=== PATIENT | male | born 1965 | race American Indian/Alaskan Native ===

== ENCOUNTER → 2018-08-18 | Outpatient (CLI) | payer OTHER ==
--- NOTE | 2018-08-18 15:31 | MR ---
MR left wrist HISTORY: Left wrist pain Multiplanar multisequence imaging through the left wrist No plain film available for comparison. Bone marrow signal is remarkable for some mild increased signal at the proximal aspect of the hamate, type II lunate is noted with articulation at the proximal hamate. Prior fibrocartilage shows some in creased signal centrally which could represent a small perforation. The scapholunate, lunotriquetral ligaments are intact but shows some probable degenerative signal. Extensor carpi ulnaris tendon sheat h shows some irregularity, there is some fluid signal, tendinitis mildly thickened with some internal signal suggesting tendinosis, possible sprain of the sheath, tenosynovitis. The abductor pollicis lo ngus tendon shows probable multiple individual slips of tendon rather than longitudinal tear, some mi nimal fluid signal present at this level. Flexor and extensor tendons are intact. Soft tissue edema c hange is present about the extensor tendons, some fluid signal present along multiple extensor tendon s suggest tenosynovitis. No evident fracture or dislocation. IMPRESSION: Findings along the extensor carpi ulnar tendon compatible with tenosynovitis with sprain of the tendon sheath. Abnormal triangular fibrocartilage as described. Type II lunate with additional articular facet. Additional findings above.
== END | disposition home or self-care (01) ==
LOC: RADMRIMAIN 06:13
PROVIDERS: ATTEND Orthopaedic Surgery
DX: M77.8 Other enthesopathies, not elsewhere classified (principal)

== ENCOUNTER 2020-09-27 07:29 | Observation (INO) | payer BC ==
[2020-09-27] MEDS ORDERED: SODIUM CHLORIDE 0.9% 1,000 ML IV STA (07:49)
[2020-09-27] MEDS ORDERED: ACETAMINOPHEN TAB 325 MG TAB PO STA (07:56)
[2020-09-27 08:05] LABS: Basophils # (A) 0.1 k/uL (0-0.2); Basophils % (A) 1 %; Eosinophils # (A) 0.1 k/uL (0-0.7); Eosinophils % (A) 1 %; HCT 42.5 % (39.0-53.0); HGB 14.7 gm/dL (13.0-17.5); Lymphocytes # (A) 1.7 k/uL (1.0-4.8); Lymphocytes % (A) 32 %; MCH 30.3 pg (25.0-35.0); MCHC 34.6 g/dL (31.0-37.0); MCV 87.4 fL (80.0-100.0); Mean Platelet Volume 6.8; Monocytes # (A) 0.3 k/uL (0-1.0); Monocytes % (A) 6 %; Neutrophils # (A) 3.1 k/uL (1.3-7.7); Neutrophils % (A) 59 %; Platelet Count 216 k/uL (150-450); RBC 4.86 m/uL (4.30-5.90); RDW 12.4 % (11.5-15.5); WBC 5.2 k/uL (3.8-10.6)
--- NOTE | 2020-09-27 08:13 | ED ---
General Adult HPI - General Chief complaint: Dizziness Stated complaint: Dizziness Source: EMS Mode of arrival: EMS Limitations: no limitations - History of Present Illness Initial comments: Patient is a 54-year-old male with past medical history of hypertension presents emergency department after he had a presyncopal episode. Patient reports that he was laying in bed when he had the sensation that he had to throw up. Patient attempted to walk to the bathroom however felt extremely lightheaded and kneeled to the ground. States he did not fall or hit his head. He began dry heaving. heard a "thump" from the bathroom and came out to see that he was on the ground. He was able to arouse. Patient denies losing consciousness. EMS was called and found the patient to be hypotensive. Vital signs did improve upon laying down. IV was established and the patient was given approximately 200 mL of saline. He denies any recent illnesses. Does report to poor oral intake due to a recent sinus headache. States he's had a frontal headache for the past several days. Denies vision changes or photophobia. No unilateral numbness or weakness. States he took Sudafed however this was 4 days ago. Denies any new medications. Does take high blood pressure medication however denies any recent changes in his dosing. He denies any chest pain or shortness of breath. No abdominal pain. Does admit to diarrhea. No black or bloody stools. No other alleviating, precipitating or modifying factors - Related Data Home Medications Medication Instructions Recorded Confirmed Bisoprolol-Hctz 2.5-6.25 mg [Ziac 1 tab PO DAILY 09/27/20 09/27/20 2.5-6.25 MG] Allergies Allergy/AdvReac Type Severity Reaction Status Date / Time No Known Allergies Allergy Verified 09/27/20 11:15 Review of Systems ROS Statement: Those systems with pertinent positive or pertinent negative responses have been documented in the HPI. ROS Other: All systems not noted in ROS Statement are negative. Past Medical History Past Medical History: Hypertension History of Any Multi-Drug Resistant Organisms: None Reported Past Surgical History: No Surgical Hx Reported Past Psychological History: No Psychological Hx Reported Smoking Status: Never smoker Past Alcohol Use History: None Reported Past Drug Use History: None Reported General Exam Limitations: no limitations Course Vital Signs 09/27/20 09/27/20 09/27/20 07:30 08:02 08:41 Temperature 98.5 F Pulse Rate 86 72 Pulse Rate [ 92 Sitting] Pulse Rate [ 91 Standing] Pulse Rate [ 87 Supine] Respiratory 16 16 16 Rate Blood Pressure 108/76 112/82 Blood Pressure 103/69 [Sitting] Blood Pressure 83/54 [Standing] Blood Pressure 107/75 [Supine] O2 Sat by Pulse 99 100 99 Oximetry 09/27/20 09/27/20 09/27/20 09:21 09:54 10:31 Temperature Pulse Rate 89 75 Pulse Rate [ 78 Sitting] Pulse Rate [ 82 Standing] Pulse Rate [ 76 Supine] Respiratory 16 16 16 Rate Blood Pressure 91/62 91/26 Blood Pressure 98/69 [Sitting] Blood Pressure 90/62 [Standing] Blood Pressure 92/68 [Supine] O2 Sat by Pulse 100 99 Oximetry 09/27/20 09/27/20 09/27/20 11:15 11:55 13:00 Temperature Pulse Rate 89 77 76 Pulse Rate [ Sitting] Pulse Rate [ Standing] Pulse Rate [ Supine] Respiratory 18 16 16 Rate Blood Pressure 102/71 103/76 110/80 Blood Pressure [Sitting] Blood Pressure [Standing] Blood Pressure [Supine] O2 Sat by Pulse 98 98 98 Oximetry 09/27/20 13:26 Temperature 98.0 F Pulse Rate Pulse Rate [ Sitting] Pulse Rate [ Standing] Pulse Rate [ Supine] Respiratory Rate Blood Pressure Blood Pressure [Sitting] Blood Pressure [Standing] Blood Pressure [Supine] O2 Sat by Pulse Oximetry EKG Findings - EKG Comments: EKG Findings:: EKG demonstrates normal sinus rhythm with a ventricular rate of 82. TN interval 166. QRS 84. QTC of 397. Medical Decision Making - Medical Decision Making Arrival patient is placed into room 1. A thorough history and physical exam was performed. Orthostatics are performed and are grossly positive. Patient has a blood pressure of 107/75 upon lying down. When standing the patient's blood pressure drops to 83/54.IV is established. Patient given a liter bolus of normal saline. Laboratory studies were conducted. Patient went for a CT of his brain as he is reporting to a headache causing him to have poor oral intake. Laboratory studies are reviewed. Chest and CT of the brain demonstrated no acute processes. I did repeat the patient's blood pressures and they remain stable however all 3 measurements remain hypotensive. Patient is given a second liter bolus of normal saline with continued low blood pressure readings. Because of this I did recommend admission. Spoke with Anthony Reed who agreed to admit the patient. echo was ordered. Patient will be continued on fluid hydration. Patient remained in stable condition awaiting a bed - Lab Data Result diagrams: 09/27/20 07:52 09/27/20 07:52 Lab Results 09/27/20 09/27/20 09/27/20 Range/Units 07:52 07:52 07:52 WBC 5.2 (3.8-10.6) k/uL RBC 4.86 (4.30-5.90) m/uL Hgb 14.7 (13.0-17.5) gm/dL Hct 42.5 (39.0-53.0) % MCV 87.4 (80.0-100.0) fL MCH 30.3 (25.0-35.0) pg MCHC 34.6 (31.0-37.0) g/dL RDW 12.4 (11.5-15.5) % Plt Count 216 (150-450) k/uL MPV 6.8 Neutrophils % 59 % Lymphocytes % 32 % Monocytes % 6 % Eosinophils % 1 % Basophils % 1 % Neutrophils # 3.1 (1.3-7.7) k/uL Lymphocytes # 1.7 (1.0-4.8) k/uL Monocytes # 0.3 (0-1.0) k/uL Eosinophils # 0.1 (0-0.7) k/uL Basophils # 0.1 (0-0.2) k/uL Sodium 132 L (137-145) mmol/L Potassium 4.5 (3.5-5.1) mmol/L Chloride 101 (98-107) mmol/L Carbon Dioxide 24 (22-30) mmol/L Anion Gap 7 mmol/L BUN 14 (9-20) mg/dL Creatinine 1.07 (0.66-1.25) mg/dL Est GFR (CKD-EPI)AfAm >90 (>60 ml/min/1.73 sqM) Est GFR (CKD-EPI)NonAf 80 (>60 ml/min/1.73 sqM) Glucose 138 H (74-99) mg/dL Plasma Lactic Acid Kishore (0.7-2.0) mmol/L Calcium 8.5 (8.4-10.2) mg/dL Total Bilirubin 0.7 (0.2-1.3) mg/dL AST 24 (17-59) U/L ALT 16 (4-49) U/L Alkaline Phosphatase 36 L (38-126) U/L Troponin I <0.012 (0.000-0.034) ng/mL Total Protein 7.1 (6.3-8.2) g/dL Albumin 3.9 (3.5-5.0) g/dL Urine Color Urine Appearance (Clear) Urine pH (5.0-8.0) Ur Specific [place] (1.001-1.035) Urine Protein (Negative) Urine Glucose (UA) (Negative) Urine Ketones (Negative) Urine Blood (Negative) Urine Nitrite (Negative) Urine Bilirubin (Negative) Urine Urobilinogen (<2.0) mg/dL Ur Leukocyte Esterase (Negative) 09/27/20 09/27/20 Range/Units 07:52 07:52 WBC (3.8-10.6) k/uL RBC (4.30-5.90) m/uL Hgb (13.0-17.5) gm/dL Hct (39.0-53.0) % MCV (80.0-100.0) fL MCH (25.0-35.0) pg MCHC (31.0-37.0) g/dL RDW (11.5-15.5) % Plt Count (150-450) k/uL MPV Neutrophils % % Lymphocytes % % Monocytes % % Eosinophils % % Basophils % % Neutrophils # (1.3-7.7) k/uL Lymphocytes # (1.0-4.8) k/uL Monocytes # (0-1.0) k/uL Eosinophils # (0-0.7) k/uL Basophils # (0-0.2) k/uL Sodium (137-145) mmol/L Potassium (3.5-5.1) mmol/L Chloride (98-107) mmol/L Carbon Dioxide (22-30) mmol/L Anion Gap mmol/L BUN (9-20) mg/dL Creatinine (0.66-1.25) mg/dL Est GFR (CKD-EPI)AfAm (>60 ml/min/1.73 sqM) Est GFR (CKD-EPI)NonAf (>60 ml/min/1.73 sqM) Glucose (74-99) mg/dL Plasma Lactic Acid Kishore 1.6 (0.7-2.0) mmol/L Calcium (8.4-10.2) mg/dL Total Bilirubin (0.2-1.3) mg/dL AST (17-59) U/L ALT (4-49) U/L Alkaline Phosphatase (38-126) U/L Troponin I (0.000-0.034) ng/mL Total Protein (6.3-8.2) g/dL Albumin (3.5-5.0) g/dL Urine Color Light Yellow Urine Appearance Clear (Clear) Urine pH 7.0 (5.0-8.0) Ur Specific [place] 1.008 (1.001-1.035) Urine Protein Negative (Negative) Urine Glucose (UA) Negative (Negative) Urine Ketones Negative (Negative) Urine Blood Negative (Negative) Urine Nitrite Negative (Negative) Urine Bilirubin Negative (Negative) Urine Urobilinogen <2.0 (<2.0) mg/dL Ur Leukocyte Esterase Negative (Negative) Disposition Clinical Impression: Hypotension, Pre-syncope Disposition: ADMITTED IP TO THIS [facility] Condition: Stable Is patient prescribed a controlled substance at d/c from ED?: No Decision to Admit Reason: Admit from EC Decision Date: 09/27/20 Decision Time: 11:06
[2020-09-27 08:21] LABS: ALT 16 U/L (4-49); AST 24 U/L (17-59); African American GFR (CKD) >90 (>60 ml/min/1.73 sqM); Albumin 3.9 g/dL (3.5-5.0); Alkaline Phosphatase 36 U/L (38-126); Anion Gap 7 mmol/L; Blood Urea Nitrogen 14 mg/dL (9-20); Calcium 8.5 mg/dL (8.4-10.2); Carbon Dioxide 24 mmol/L (22-30); Chloride 101 mmol/L (98-107); Glucose 138 mg/dL (74-99); Non-African American GFR(CKD) 80 (>60 ml/min/1.73 sqM); Potassium 4.5 mmol/L (3.5-5.1); Sodium 132 mmol/L (137-145); Total Bilirubin 0.7 mg/dL (0.2-1.3); Total Protein 7.1 g/dL (6.3-8.2)
--- NOTE | 2020-09-27 08:32 | XR ---
EXAMINATION TYPE: XR chest 2V DATE OF EXAM: 09/27/2020 COMPARISON: Chest x-ray May 29, 2020 HISTORY: Hypointense and presyncope. TECHNIQUE: Frontal and lateral views of the chest are obtained. FINDINGS: There is chronic parenchymal change with increased markings medial right lower lung redemo nstrated. No new focal airspace opacity, pleural effusion, or pneumothorax seen bilaterally. The card iac silhouette size remains within normal limits. Mild to moderate multilevel disc space narrowing in the lower thoracic spine is redemonstrated.. Overlying EKG leads redemonstrated. IMPRESSION: No new suspicious acute pulmonary process. No significant change from prior.
--- NOTE | 2020-09-27 08:41 | CT ---
EXAMINATION TYPE: CT brain wo con DATE OF EXAM: 09/27/2020 COMPARISON: None HISTORY: Headache, poor oral intake, presyncope CT DLP: 1149.[address] of the brain was performed. The ventricles, basal cisterns and sulci overlying the cerebral convexities demonstrate mild enlargem ent. There is no evidence for intracranial hemorrhage or sulcal effacement. There is decreased attenuation about the periventricular white matter and deep white matter of both c erebral hemispheres, compatible with chronic small vessel ischemia. Differential diagnosis does inclu de demyelination. No mass effects are seen.No midline shift. Osseous calvarium is intact. If symptoms persist consider MRI. IMPRESSION: 1. Age related atrophic and chronic small vessel ischemic change without acute intracranial process s een at this time.
[2020-09-27] MEDS ORDERED: SODIUM CHLORIDE 0.9% 1,000 ML IV ONE ×2 (09:32→11:08)
[2020-09-27] MEDS ORDERED: NALOXONE 0.4 MG/ML 1 ML VIAL IV PRN (11:10)
[2020-09-27] MEDS ORDERED: SODIUM CHLORIDE 0.9% 1,000 ML IV SCH (11:15)
[2020-09-27] MEDS ORDERED: ACETAMINOPHEN TAB 325 MG TAB PO PRN (11:36)
[2020-09-27 12:25] LABS: Appearance,Urine Clear (Clear); Bilirubin,Urine Negative (Negative); Blood,Urine Negative (Negative); Color,Urine Light Yellow; Glucose,Urine (UA) Negative (Negative); Ketones,Urine Negative (Negative); Leukocyte Esterase,Urine Negative (Negative); Nitrite,Urine Negative (Negative); Protein,Urine Negative (Negative); Specific Gravity,Urine 1.008 (1.001-1.035); Urobilinogen,Urine <2.0 mg/dL (<2.0)
[2020-09-27] MEDS ORDERED: ALBUTEROL HFA INHALER INHALATION PRN (16:47)
[2020-09-27 17:39] LABS: D-Dimer 0.52 mg/L FEU (<0.60); INR 0.9 (<1.2); Partial Thromboplastin Time 25.1 sec (22.0-30.0)
[2020-09-27 17:45] LABS: C Reactive Protein 0.7 mg/dL (<1.0)
[2020-09-27] MEDS: DEXAMETHASONE SOD PHOSPHATE 10 MG/ML 1 ML VIAL IV SCH (17:58)
[2020-09-27] MEDS ORDERED: SODIUM CHLORIDE 0.9% 500 ML 500 ML IV SCH (18:00)
[2020-09-27] MEDS ORDERED: ENOXAPARIN 40 MG/0.4 ML SYRINGE SQ SCH (18:00)
[2020-09-27] MEDS: ZINC SULFATE 220 MG CAP PO SCH (18:20)
[2020-09-27] MEDS: CHOLECALCIFEROL 25 MCG (1000 IU) TABLET PO SCH (18:20)
[2020-09-27] MEDS: INSULIN ASPART (NovoLOG) 100 UNIT/ML VIAL SQ SCH ×2 (18:21→20:39)
[2020-09-27 18:28] LABS: Glucose,Whole Blood 94 mg/dL (75-99)
[2020-09-27] MEDS ORDERED: SODIUM CHLORIDE 0.9% 50 ML IVPB ONE (18:30)
[2020-09-27] MEDS ORDERED: BAMLANIVIMAB (EUA) 700 MG, ETESEVIMAB (EUA) 1,400 MG in SODIUM CHLORIDE 0.9% 50 ML IVPB ONE (18:30)
--- NOTE | 2020-09-27 19:39 | P.HPIM ---
History of Present Illness H&P Date: 09/27/20 Chief Complaint: Pre-syncopal episodes/hypotension/sinus congestion/ fever/cough 54-year-old male with significant medical history of hypertension, and prediabetes was admitted to the hospital for presyncopal episodes with associated hypotension. Patient had extensive diagnostic workup in emergency department revealing orthostatic hypotension after fluid resuscitation. Elmer johnson additionally found to have Covid 19 infection. Evaluation of patient this p.m. patient states for the last 8 days he's had sinus congestion, low-grade fever, and the last 2 days and nonproductive cough. Patient was found to have a positive Covid 19 test. Patient inflammatory markers are minimally elevated. Patient is a candidate for monoclonal antibody infusion ordered to infuse. Patient had a echocardiogram performed today due to syncopal episodes. Cardiology consult was initiated due to presyncopal episodes. Consultation with pulmonary critical care for recommendations and treatment plan. Patient denies shortness of breath, chest pain, palpitations, abdominal pain, nausea or vomiti ng. Patient endorses sinus congestion, low-grade fever, and nonproductive cough. Review of Systems Constitutional: Reports fever Ears, nose, mouth and throat: Reports headache Respiratory: Reports cough Past Medical History Past Medical History: Hypertension Additional Past Medical History / Comment(s): was a follow-up with primary care tomorrow due to increase in blood sugars in the 130s-Last hemoglobin A1c was 6.1 History of Any Multi-Drug Resistant Organisms: None Reported Past Surgical History: No Surgical Hx Reported Past Psychological History: No Psychological Hx Reported Smoking Status: Never smoker Past Alcohol Use History: None Reported Past Drug Use History: None Reported Medications and Allergies Home Medications and Allergies Comment(s): Medications and allergies reviewed Home Medications Medication Instructions Recorded Confirmed Type Bisoprolol-Hctz 2.5-6.25 mg [Ziac 1 tab PO DAILY 09/27/20 09/27/20 History 2.5-6.25 MG] Allergies Allergy/AdvReac Type Severity Reaction Status Date / Time No Known Allergies Allergy Verified 09/27/20 11:15 Physical Exam Vitals: Vital Signs Temp Pulse Pulse Pulse Pulse Resp BP 09/27/20 14:30 98.0 F 83 18 09/27/20 13:26 98.0 F 09/27/20 13:00 76 16 110/80 09/27/20 11:55 77 16 103/76 09/27/20 11:15 89 18 102/71 09/27/20 10:31 75 16 91/26 09/27/20 09:54 89 16 91/62 09/27/20 09:21 78 82 76 16 09/27/20 08:41 72 16 112/82 09/27/20 08:02 92 91 87 16 09/27/20 07:30 98.5 F 86 16 108/76 BP BP BP Pulse Ox 09/27/20 14:30 115/76 100 09/27/20 13:26 09/27/20 13:00 98 09/27/20 11:55 98 09/27/20 11:15 98 09/27/20 10:31 99 09/27/20 09:54 100 09/27/20 09:21 98/69 90/62 92/68 09/27/20 08:41 99 09/27/20 08:02 103/69 83/54 107/75 100 09/27/20 07:30 99 Intake and Output 09/27/20 09/27/20 09/27/20 06:59 14:59 22:59 Other: Weight 70.76 kg - Constitutional General appearance: cooperative - EENT Eyes: EOMI, PERRLA, normal appearance ENT: normal oropharynx - Neck Neck: normal ROM Carotids: bilateral: upstroke normal Thyroid: bilateral: normal size - Respiratory Respiratory: bilateral: CTA (Anterior lung patrick), diminished (Posterior lung patrick) - Cardiovascular Normal sinus rhythm Heart rate: 78 Rhythm: regular Heart sounds: normal: S1, S2 radial pulse Peripheral Pulses: bilateral: Normal dorsalis pedis Peripheral Pulses: bilateral: Normal - Gastrointestinal General gastrointestinal: normal bowel sounds - Integumentary Integumentary: normal - Neurologic Neurologic: CNII-XII intact - Musculoskeletal Musculoskeletal: gait normal - Psychiatric Psychiatric: A&O x's 3, appropriate affect, intact judgment & insight Results CBC & Chem 7: 09/27/20 07:52 09/27/20 07:52 Labs: Abnormal Lab Results - Last 24 Hours (Table) 09/27/20 09/27/20 09/27/20 Range/Units 07:52 11:15 17:02 Sodium 132 L (137-145) mmol/L Glucose 138 H (74-99) mg/dL Alkaline Phosphatase 36 L (38-126) U/L Creatine Kinase 173 H (55-170) U/L Coronavirus (PCR) Detected A (Not Detectd) Chest x-ray: report reviewed Thrombosis Risk Factor Assmnt - Choose All That Apply Each Factor Represents 1 point: Age 41-60 years Other Risk Factors: No Other congenital or acquired thrombophilia - If yes, enter type in comment: No Thrombosis Risk Factor Assessment Total Risk Factor Score: 1 Thrombosis Risk Factor Assessment Level: Low Risk Assessment and Plan Assessment: Pre-syncopal episodes fluid hydration of 2 L echocardiogram consultation with cardiology for recommendations and treatment plan dehydration normal saline at 75 ML's/hr hypotension resolved with fluid resuscitation history of hypertension holding with antihypertensives at this time Covid 19 infection candidate for monoclonal antibody infusion, supportive care of vitamin C, vitamin D, zinc and Decadron 6 mg IV Consultation with pulmonology critical care for recommendations and treatment plan prediabetes sliding scale, awaiting hemoglobin A1c Full code continue to monitor vital signs, laboratory and diagnostic testing Further recommendations to come patient patient's clinical condition Time with Patient: Greater than 30
[2020-09-27 20:26] LABS: Glucose,Whole Blood 118 mg/dL (75-99)
[2020-09-27] MEDS: ASCORBIC ACID 500 MG TAB PO SCH (20:36)
[2020-09-28 01:24] LABS: Hemoglobin A1C 6.2 % (4.0-6.0)
[2020-09-28 03:39] VITALS: RESP 18
[2020-09-28 07:29] LABS: Glucose,Whole Blood 75 mg/dL (75-99)
--- NOTE | 2020-09-28 07:33 | P.PN ---
Subjective Progress Note Date: 09/28/20 Principal diagnosis: Presyncope Orthostatic hypotension Covid 19 infection Evaluated a 54-year-old male this a.m. resting comfortably in bed. Patient received monoclonal antibiotic therapy last nightimprovement with cough and sinus congestion. Patient has significant medical history of hypertension, and prediabeteswith a hemoglobin of 6.2 this a.m. labs and diagnostics reviewed Objective - Vital Signs Vital signs: Vital Signs Temp 97.7 F 09/28/20 02:00 Pulse 84 09/28/20 02:00 Resp 18 09/28/20 02:00 BP 122/79 09/28/20 02:00 Pulse Ox 97 09/28/20 02:00 Intake & Output 09/27/20 09/28/20 09/28/20 18:59 06:59 18:59 Weight 70.76 kg Other: Voiding Method Toilet # Voids 2 - Constitutional General appearance: Present: cooperative - EENT Eyes: Present: EOMI, PERRLA ENT: Present: normal oropharynx - Neck Neck: Present: normal ROM Carotids: bilateral: upstroke normal Thyroid: bilateral: normal size - Respiratory Respiratory: bilateral: CTA (Anterior and posterior) - Cardiovascular Details: Normal sinus rhythm Heart rate: 74 Rhythm: regular Heart sounds: normal: S1, S2 - Peripheral pulses dorsalis pedis Peripheral Pulses: bilateral: Normal radial pulse Peripheral Pulses: bilateral: Normal - Gastrointestinal General gastrointestinal: Present: normal bowel sounds - Integumentary Integumentary: Present: normal - Neurologic Neurologic: Present: CNII-XII intact - Musculoskeletal Musculoskeletal: Present: gait normal - Psychiatric Psychiatric: Present: A&O x's 3, appropriate affect, intact judgment & insight - Allied health notes Allied health notes reviewed: nursing - Labs CBC & Chem 7: 09/27/20 07:52 09/27/20 07:52 Labs: Abnormal Lab Results - Last 24 Hours (Table) 09/27/20 09/27/20 09/27/20 Range/Units 07:52 11:15 17:02 Sodium 132 L (137-145) mmol/L Glucose 138 H (74-99) mg/dL POC Glucose (mg/dL) (75-99) mg/dL Hemoglobin A1c (4.0-6.0) % Alkaline Phosphatase 36 L (38-126) U/L Creatine Kinase 173 H (55-170) U/L Coronavirus (PCR) Detected A (Not Detectd) 09/27/20 09/27/20 Range/Units 17:03 20:24 Sodium (137-145) mmol/L Glucose (74-99) mg/dL POC Glucose (mg/dL) 118 H (75-99) mg/dL Hemoglobin A1c 6.2 H (4.0-6.0) % Alkaline Phosphatase (38-126) U/L Creatine Kinase (55-170) U/L Coronavirus (PCR) (Not Detectd) - Imaging and Cardiology Chest x-ray: report reviewed Assessment and Plan Assessment: Pre-syncopal episodes fluid hydration of 2 L echocardiogram consultation with cardiology for recommendations and treatment plan dehydration normal saline at 75 ML's/hr hypotension resolved with fluid resuscitation history of hypertension holding with antihypertensives at this time Covid 19 infection received monoclonal antibody infusion, supportive care of vitamin C, vitamin D, zinc and Decadron 6 mg IV Consultation with pulmonology critical care for recommendations and treatment plan prediabetes sliding scale, awaiting hemoglobin A1c Full code continue to monitor vital signs, laboratory and diagnostic testing Further recommendations to come patient patient's clinical condition Hopeful discharge in 24 hours Time with Patient: Greater than 30
[2020-09-28] MEDS: INSULIN ASPART (NovoLOG) 100 UNIT/ML VIAL SQ SCH ×2 (07:45→14:14)
[2020-09-28 08:15] LABS: African American GFR (CKD) >90 (>60 ml/min/1.73 sqM); Anion Gap 8 mmol/L; Blood Urea Nitrogen 13 mg/dL (9-20); Calcium 8.1 mg/dL (8.4-10.2); Carbon Dioxide 23 mmol/L (22-30); Chloride 104 mmol/L (98-107); Glucose 88 mg/dL (74-99); Non-African American GFR(CKD) >90 (>60 ml/min/1.73 sqM); Potassium 4.2 mmol/L (3.5-5.1); Sodium 135 mmol/L (137-145)
--- NOTE | 2020-09-28 08:58 | P.CRDCN ---
History of Present Illness Consult date: 09/28/20 Chief complaint: Dizziness and lightheadedness History of present illness: This is a very pleasant 54-year-old gentleman who sees Dr. Smith in the office as an outpatient with a past medical history significant for hypertension and dyslipidemia was admitted to the hospital with Covid 19 infection and we consulted to see the patient for further evaluation off dizziness and lightheadedness and presyncope. The patient was not feeling well for the last few days. He was having some flulike symptoms and sinus injections as well as low-grade fever for the last few days. Also he was experiencing nonproductive cough. No symptoms of chest pain or chest discomfort and no shortness of breath and no abdominal pain or abdominal discomfort or any nausea or vomiting or diarrhea. He felt dizzy and lightheaded and about to lose his consciousness but he did not have clear-cut syncope. Family called ambulance and the patient was found to be hypotensive where he was brought to the emergency department. IV fluid resuscitation was initiated and repeated orthostatic blood pressure this morning came in to be within normal limits. The patient feels better. He stated that "I want to go home". He denies any dizziness or lightheadedness or any feeling of heart racing or fluttering or any symptoms of chest pain or chest discomfort or shortness of breath. He underwent an echocardiogram which is still pending. The chest x-ray did not show any acute abnormalities. The EKG showed sinus rhythm without any significant ST or T-wave abnormalities. The rest of the blood work came in to be unremarkable including the troponin Past Medical History Past Medical History: Hypertension Additional Past Medical History / Comment(s): was a follow-up with primary care tomorrow due to increase in blood sugars in the 130s-Last hemoglobin A1c was 6.1 History of Any Multi-Drug Resistant Organisms: None Reported Past Surgical History: No Surgical Hx Reported Past Psychological History: No Psychological Hx Reported Smoking Status: Never smoker Past Alcohol Use History: None Reported Past Drug Use History: None Reported Medications and Allergies Home Medications Medication Instructions Recorded Confirmed Type Bisoprolol-Hctz 2.5-6.25 mg [Ziac 1 tab PO DAILY 09/27/20 09/27/20 History 2.5-6.25 MG] Allergies Allergy/AdvReac Type Severity Reaction Status Date / Time No Known Allergies Allergy Verified 09/27/20 11:15 Physical Exam Vitals: Vital Signs Temp Pulse Pulse Pulse Pulse Pulse Resp 09/28/20 07:00 99.0 F 96 18 09/28/20 02:00 97.7 F 84 18 09/27/20 20:00 99.3 F 69 16 09/27/20 14:30 98.0 F 83 18 09/27/20 13:26 98.0 F 09/27/20 13:00 76 16 09/27/20 11:55 77 16 09/27/20 11:15 89 18 09/27/20 10:31 75 16 09/27/20 09:54 89 16 09/27/20 09:21 78 82 76 16 BP BP BP BP Pulse Ox 09/28/20 07:00 117/68 97 09/28/20 02:00 122/79 97 09/27/20 20:00 110/71 98 09/27/20 14:30 115/76 100 09/27/20 13:26 09/27/20 13:00 110/80 98 09/27/20 11:55 103/76 98 09/27/20 11:15 102/71 98 09/27/20 10:31 91/26 99 09/27/20 09:54 91/62 100 09/27/20 09:21 98/69 90/62 92/68 Intake and Output 09/27/20 09/28/20 09/28/20 22:59 06:59 14:59 Other: Voiding Method Toilet Toilet Toilet # Voids 1 2 - Constitutional General appearance: no acute distress - Respiratory Respiratory: bilateral: CTA - Cardiovascular Rhythm: regular Heart sounds: normal: S1, S2 Results 09/27/20 07:52 09/28/20 07:11 Cardiac Enzymes 09/27/20 09/27/20 09/27/20 Range/Units 11:20 15:05 17:02 Lactate Dehydrogenase 471 (313-618) U/L Troponin I <0.012 <0.012 (0.000-0.034) ng/mL Coagulation 09/27/20 Range/Units 17:03 PT 10.0 (9.0-12.0) sec APTT 25.1 (22.0-30.0) sec Comprehensive Metabolic Panel 09/28/20 Range/Units 07:11 Sodium 135 L (137-145) mmol/L Potassium 4.2 (3.5-5.1) mmol/L Chloride 104 (98-107) mmol/L Carbon Dioxide 23 (22-30) mmol/L BUN 13 (9-20) mg/dL Creatinine 0.78 (0.66-1.25) mg/dL Glucose 88 (74-99) mg/dL Calcium 8.1 L (8.4-10.2) mg/dL Current Medications Generic Name Dose Route Start Last Admin Trade Name Freq PRN Reason Stop Dose Admin Acetaminophen 650 mg 09/27/20 11:36 09/27/20 20:36 Acetaminophen Tab 325 Mg Tab PO 650 mg Q6HR PRN Administration Fever and/ or Pain Albuterol Sulfate 2 puff 09/27/20 16:47 Albuterol Hfa Inhaler INHALATION RT-Q6H PRN Shortness Of Breath Or Wheezing Ascorbic Acid 500 mg 09/27/20 21:00 09/27/20 20:36 Ascorbic Acid 500 Mg Tab PO 500 mg BID AMANDA Administration Cholecalciferol 25 mcg 09/27/20 18:00 09/27/20 18:20 Cholecalciferol 25 Mcg (1000 Iu) Tablet PO 25 mcg DAILY AMANDA Administration Dexamethasone Sodium Phosphate 6 mg 09/27/20 17:00 09/27/20 17:58 Dexamethasone Sod Phosphate 10 Mg/Ml 1 Ml Vial IV 10/06/20 09:01 6 mg DAILY AMANDA Administration Sodium Chloride 500 mls @ 20 mls/hr 09/27/20 18:00 09/27/20 18:21 Saline 0.9% IV 20 mls/hr .Q24H AMANDA Administration Insulin Aspart 0 unit 09/27/20 18:00 09/28/20 07:45 Insulin Aspart (Novolog) 100 Unit/Ml Vial SQ Not Given ACHS AMANDA Protocol Naloxone HCl 0.2 mg 09/27/20 11:10 Naloxone 0.4 Mg/Ml 1 Ml Vial IV Q2M PRN Opioid Reversal Zinc Sulfate 220 mg 09/27/20 18:00 09/27/20 18:20 Zinc Sulfate 220 Mg Cap PO 220 mg DAILY AMANDA Administration Intake and Output 09/27/20 09/28/20 09/28/20 22:59 06:59 14:59 Other: Voiding Method Toilet Toilet Toilet # Voids 1 2 09/27/20 07:52 09/28/20 07:11 Assessment and Plan Assessment: Assessment #1 COVID-19 infection #2 orthostatic hypotension #3 dehydration Plan #1 the repeated orthostatic blood pressure is better #2 we will follow-up on the echocardiogram #3 if the patient continues to be asymptomatic and the echo is unremarkable he potentially come go home later on today
--- NOTE | 2020-09-28 09:01 | XR ---
EXAMINATION TYPE: XR chest 1V portable DATE OF EXAM: 09/28/2020 COMPARISON: Chest x-ray 09/27/2020 HISTORY: Covid 19 infection TECHNIQUE: Single frontal view of the chest is obtained. FINDINGS: There is some minimal vague patchy density present bilaterally within the lungs. No eviden t pneumothorax or pleural effusion. Cardiac mediastinal silhouette is stable accounting for differenc es in technique. There are overlying leads. Bones are unchanged. IMPRESSION: Correlate for pneumonia.
[2020-09-28] MEDS: ZINC SULFATE 220 MG CAP PO SCH (09:13)
[2020-09-28] MEDS: CHOLECALCIFEROL 25 MCG (1000 IU) TABLET PO SCH (09:13)
[2020-09-28] MEDS: ASCORBIC ACID 500 MG TAB PO SCH (09:13)
[2020-09-28] MEDS: DEXAMETHASONE SOD PHOSPHATE 10 MG/ML 1 ML VIAL IV SCH (09:14)
--- NOTE | 2020-09-28 10:00 | ECHOF ---
Referral Reason:hypotension, presyncope MEASUREMENTS -------- HEIGHT: 167.6 cm WEIGHT: 70.8 kg BP: 107/75 RVIDd: 2.5 cm (< 3.3) IVSd: 1.0 cm (0.6 - 1.1) LVIDd: 3.5 cm (3.9 - 5.3) LVPWd: 1.1 cm (0.6 - 1.1) IVSs: 1.4 cm LVIDs: 2.4 cm LVPWs: 1.4 cm LA Diam: 2.9 cm (2.7 - 3.8) Ao Diam: 3.0 cm (2.0 - 3.7) AV Cusp: 1.9 cm (1.5 - 2.6) MV EXCURSION: 13.536 mm (> 18.000) MV EF SLOPE: 73 mm/s (70 - 150) EPSS: 0.8 cm MV E Ghassan: 0.97 m/s MV DecT: 143 ms MV A Ghassan: 0.74 m/s MV E/A Ratio: 1.30 RAP: 5.00 mmHg RVSP: 21.14 mmHg FINDINGS -------- Sinus rhythm. This was a technically good study. The left ventricular size is normal. Left ventricular wall thickness is normal. Overall left vent ricular systolic function is normal with, an EF between 60 - 65 %. The right ventricle is normal in size. Normal LA size by volume 22+/-6 ml/m2. The right atrium is normal in size. Interatrial and interventricular septum intact. The aortic valve is trileaflet, and appears structurally normal. No aortic stenosis or regurgitation. The mitral valve is normal. Mild tricuspid regurgitation present. Right ventricular systolic pressure is normal at < 35 mmHg. Trace/mild (physiologic) pulmonic regurgitation. The aortic root size is normal. Normal inferior vena cava with normal inspiratory collapse consistent with estimated right atrial pre ssure of 5 mmHg. There is no pericardial effusion. CONCLUSIONS -------- 1. The left ventricular size is normal. 2. Left ventricular wall thickness is normal. 3. Overall left ventricular systolic function is normal with, an EF between 60 - 65 %. 4. Mild tricuspid regurgitation present. 5. Trace/mild (physiologic) pulmonic regurgitation. 6. There is no pericardial effusion. VISUAL DESIGNER: Dee Gutierrez RDCS
[2020-09-28 10:53] LABS: Basophils # (A) 0.01 X 10*3/uL (0.00-0.10); Basophils % (A) 0.1 %; Eosinophils # (A) 0 X 10*3/uL (0.04-0.35); Eosinophils % (A) 0 %; HCT 39.7 % (39.6-50.0); HGB 13.5 g/dL (13.0-17.0); Lymphocytes # (A) 1.57 X 10*3/uL (0.90-5.00); Lymphocytes % (A) 21.6 %; MCH 29.7 pg (27.0-32.0); MCV 87.3 fL (80.0-97.0); Mean Platelet Volume 9.1 fL (9.5-12.2); Monocytes # (A) 0.36 X 10*3/uL (0.20-1.00); Monocytes % (A) 4.9 %; Neutrophils # (A) 5.32 X 10*3/uL (1.80-7.70); Neutrophils % (A) 73.1 %; Platelet Count 204 X 10*3/uL (140-440); RBC 4.55 X 10*6/uL (4.40-5.60); RDW 12.2 % (11.5-14.5); WBC 7.28 X 10*3/uL (4.50-10.00)
[2020-09-28 11:56] LABS: Glucose,Whole Blood 135 mg/dL (75-99)
--- NOTE | 2020-09-28 12:24 | P.CNPUL ---
History of Present Illness Consult date: 09/28/20 Reason for consult: dyspnea, cough Chief complaint: Shortness of breath and cough with fever History of present illness: This is a 54-year-old nonsmoker male with history of dyslipidemia hypertension hypertensive cardiovascular disease, patient has chronic seasonal ALLERGIES, for the last 4 or 5 days however has been V running low-grade fever become very dizzy lightheaded at home brought into the hospital for further evaluation by EMS, was noted to be very dehydrated supported with IV fluids 2 L of fluid have been given blood pressure is stabilized and admitted into the hospital, he tested positive for COVID-19 infection, he has not received any vaccination, he is a healthcare provider, his initial chest x-ray shows chronic parenchymal marking more so on the right side involving the lower lobe, a chest x-ray however no showing for a patchy density bilaterally suggestive of developing COVID-19 pneumonia, patient's inflammatory markers noted to be elevated with LDH of 471, pro calcitonin is 0.05 within normal limit, renal function normalized now, patient is currently treated with the Decadron, a bedside echocardiogram revealed ejection fraction 60-65% mild MR and TR was noted Review of Systems All systems: negative Past Medical History Past Medical History: Hypertension Additional Past Medical History / Comment(s): was a follow-up with primary care tomorrow due to increase in blood sugars in the 130s-Last hemoglobin A1c was 6.1 History of Any Multi-Drug Resistant Organisms: None Reported Past Surgical History: No Surgical Hx Reported Past Psychological History: No Psychological Hx Reported Smoking Status: Never smoker Past Alcohol Use History: None Reported Past Drug Use History: None Reported Medications and Allergies Home Medications Medication Instructions Recorded Confirmed Type Bisoprolol-Hctz 2.5-6.25 mg [Ziac 1 tab PO DAILY 09/27/20 09/27/20 History 2.5-6.25 MG] Allergies Allergy/AdvReac Type Severity Reaction Status Date / Time No Known Allergies Allergy Verified 09/27/20 11:15 Physical Exam Vitals: Vital Signs Temp Pulse Pulse Pulse Resp BP BP 09/28/20 07:00 99.0 F 96 18 09/28/20 02:00 97.7 F 84 18 122/79 09/27/20 20:00 99.3 F 69 16 09/27/20 14:30 98.0 F 83 18 115/76 09/27/20 13:26 98.0 F 09/27/20 13:00 76 16 110/80 BP Pulse Ox 09/28/20 07:00 117/68 97 09/28/20 02:00 97 09/27/20 20:00 110/71 98 09/27/20 14:30 100 09/27/20 13:26 09/27/20 13:00 98 Intake and Output 09/27/20 09/28/20 09/28/20 22:59 06:59 14:59 Other: Voiding Method Toilet Toilet Toilet # Voids 1 2 - Constitutional General appearance: cooperative, disheveled, mild distress - EENT Eyes: PERRLA Ears: bilateral: normal - Neck Carotids: bilateral: upstroke normal Thyroid: bilateral: normal size - Respiratory Respiratory: negative: CTA (Bilateral coarse breath sounds) - Cardiovascular Rhythm: regular Heart sounds: normal: S1, S2 - Gastrointestinal General gastrointestinal: normal bowel sounds, soft - Integumentary Integumentary: normal turgor - Neurologic Neurologic: CNII-XII intact - Musculoskeletal Musculoskeletal: gait normal, generalized weakness, strength equal bilaterally - Psychiatric Psychiatric: A&O x's 3, appropriate affect, intact judgment & insight Results - Laboratory Findings CBC and BMP: 09/28/20 07:11 09/28/20 07:11 PT/INR, D-dimer PT 10.0 sec (9.0-12.0) 09/27/20 17:03 INR 0.9 (<1.2) 09/27/20 17:03 D-Dimer 0.52 mg/L FEU (<0.60) 09/27/20 17:03 Abnormal lab findings: Abnormal Labs 09/27/20 09/27/20 09/27/20 07:52 11:15 17:02 MPV Eosinophils # Sodium 132 L Glucose 138 H POC Glucose (mg/dL) Hemoglobin A1c Calcium Alkaline Phosphatase 36 L Creatine Kinase 173 H Coronavirus (PCR) Detected A 09/27/20 09/27/20 09/28/20 17:03 20:24 07:11 MPV 9.1 L Eosinophils # 0 L Sodium Glucose POC Glucose (mg/dL) 118 H Hemoglobin A1c 6.2 H Calcium Alkaline Phosphatase Creatine Kinase Coronavirus (PCR) 09/28/20 09/28/20 07:11 11:54 MPV Eosinophils # Sodium 135 L Glucose POC Glucose (mg/dL) 135 H Hemoglobin A1c Calcium 8.1 L Alkaline Phosphatase Creatine Kinase Coronavirus (PCR) - Diagnostic Findings Chest x-ray: report reviewed, image reviewed (Finding as noted above) Assessment and Plan Assessment: Acute COVID-19 pneumonia Developing sepsis due to COVID-19 pneumonia Hypertension hypertensive cardiovascular disease Dyslipidemia Obesity Plan: Continue gentle hydration We'll check inflammatory parameters including d-dimer, C-reactive protein, ferritin, if d-dimer is elevated we'll do a spiral computed tomography scan of the chest ruled out pulmonary embolism Start Lovenox 30 mg subcu every 12 IV REMDESIVIR five-day therapy Continue Decadron as planned Time with Patient: Greater than 30
[2020-09-28] MEDS ORDERED: ENOXAPARIN 30 MG/0.3 ML SYRINGE SQ SCH (12:30)
[2020-09-28] MEDS ORDERED: REMDESIVIR 200 MG in SODIUM CHLORIDE 0.9% 250 ML IVPB ONE (14:00)
[2020-09-28 14:09] VITALS: BP 133/70; PULSE 106; TEMP 98.5
--- NOTE | 2020-09-28 18:13 | P.DS ---
Providers Date of admission: 09/27/20 11:10 Expected date of discharge: 09/28/20 (AMA) Attending physician: Noble Barrientos Consults: 09/27/20 11:41 Consult Physician Urgent Consulting Provider: [facility] Consult Reason/Comments: presyncope Do you want consulting provider notified?: Yes 09/27/20 17:27 Consult Physician Urgent Consulting Provider: Guy Barrera Consult Reason/Comments: covid-19 Do you want consulting provider notified?: Yes Primary care physician: Noble Barrientos Hospital Course: 54-year-old male with significant medical history of dyslipidemia, hypertension, prediabetes with hemoglobin A1c of 6.2, cardiovascular disease, chronic seasonal allergies. Patient was admitted to the hospital for presyncopal episodes with hypotensionfluid resuscitation of 2 L was given in the emergency department. During admission, patient found to have Covid 19 infection from PCR. Inflammatory markers were ordered and noted to be mildly elevated. On obtaining history from patient patient had noted the last 7 days low-grade fever, nasal congestion, and nonproductive cough. 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 09/28/2020 chest x-ray was consistent of Covid 19 pneumonia. Patient was evaluated by pulmonary critical care was recommended to stay for 5 additional days to receive treatment of IV REMDESIVIR for 5 day course. Patient notified staff nurse they would like to leave AGAINST MEDICAL ADVICE. Spoke with patient personally on the phone patient stated he could not wait to be evaluated by medical team and was leaving AGAINST MEDICAL ADVICE and would not stay for 5 day duration of IV REMDESIVIR. explained in great detail with patient leaving AGAINST MEDICAL ADVICE with chest x-ray worsening showing signs of Covid 19 pneumonia the risk of permanent disability or prolonged symptoms. Patient left medical advice with guarded prognosis. Assessment: Presyncope Orthostatic hypotension Acute Covid 19 pneumonia History of hypertension Prediabetes with a hemoglobin A1c of 6.2 Dyslipidemia Obesity with a BMI of 25.2 Full code Health Concerns: Patient leaving AGAINST MEDICAL ADVICE with elevated inflammatory markers, chest x-ray consistent with Covid 19 pneumonia Pertinent Studies: Serial chest x-rays Chest x-ray on 09/28/2020 consistent with Covid 19 pneumonia Procedures: No procedures performed Patient Condition at Discharge: Poor Plan - Discharge Summary Discharge Rx Participant: No New Discharge Prescriptions: Continue Bisoprolol-Hctz 2.5-6.25 mg [Ziac 2.5-6.25 MG] 1 tab PO DAILY Discharge Medication List Bisoprolol-Hctz 2.5-6.25 mg [Ziac 2.5-6.25 MG] 1 tab PO DAILY 09/27/20 [History] Follow up Appointment(s)/Referral(s): Noble Barrientos MD [Primary Care Provider] - 1-2 days Guy Barrera MD [STAFF PHYSICIAN] - 1 Week Gianluca Smith MD [STAFF PHYSICIAN] - 2 Weeks Discharge Disposition: Left Against Medical Advice
[2020-09-28 21:20] LABS: Ferritin 265.4 ng/mL (22.0-322.0)
[2020-09-29 03:54] LABS: Ferritin 282.3 ng/mL (22.0-322.0)
[2020-09-29 05:31] LABS: C Reactive Protein <0.4 mg/dL (0.0-0.8)
[2020-09-29 06:48] LABS: Urine Alcohol Negative (Negative); Urine Barbiturate Negative (Negative); Urine Cocaine Negative (Negative); Urine Methadone Negative (Negative); Urine Opiates Negative (Negative); Urine Phencyclidine Negative (Negative)
[2020-09-29] MEDS ORDERED: REMDESIVIR 100 MG in SODIUM CHLORIDE 0.9% 250 ML IVPB SCH (14:00)
== END 2020-09-28 14:23 | disposition left against medical advice (07) ==
LOC: EC 07:29 → 6NMEDSUR 11:10
PROVIDERS: ADMIT Family Medicine; ATTEND Family Medicine
DX: U07.1 COVID-19 (principal); J12.82 Pneumonia due to coronavirus disease 2019; I95.1 Orthostatic hypotension; E86.0 Dehydration; A41.89 Other specified sepsis; I25.10 Atherosclerotic heart disease of native coronary artery without angina pectoris; R73.03 Prediabetes; I11.9 Hypertensive heart disease without heart failure; E78.5 Hyperlipidemia, unspecified; E66.9 Obesity, unspecified; J30.2 Other seasonal allergic rhinitis; Z68.25 Body mass index [BMI] 25.0-25.9, adult; Z53.29 Procedure and treatment not carried out because of patient's decision for other reasons; Z79.899 Other long term (current) drug therapy
CPT/HCPCS: 96376; 96361 ×3; 96372; 96374; 99285; 51798; 36415; 93005; 93306; 85379 ×2; 83880; 80053; 80048; 82728 ×2; 82550; 83605; 83615; 83735; 84484; 85025 ×2; 85384; 85610; 85730; 86140 ×2; 81003; 80306; 83036; 84145; 87635; 71045; 71046; 70450; G0378 ×2; J1100 ×2; J1650; Q0245